=== PATIENT | female | born 1980 | race Caucasian/White ===

== ENCOUNTER → 2016-11-06 | Outpatient (CLI) | payer BC ==
[~2016-11-06] MED LIST: CEPHALEXIN500 M1 PO; DESYREL 50MG50 MG; ENSKYCE 0.15 MG1 TAB PO; FASTIN30 MG PO; GLUCOPHAGE500 MG/TAB PO; HCTZ 25MG TAB25 MG; KLONOPIN 0.5MG0.5 MG PO; LORTAB 5/500 501 TAB PO; NO HOME MEDICATIONS; WELLBUTRIN XL300 M1 PO
== END ==
LOC: COL.RAD 09:45
DX: E04.2 Nontoxic multinodular goiter (principal)

== ENCOUNTER → 2016-11-12 | Outpatient (CLI) | payer BC | LOC: MC.RAD 10:20 | DX: Z12.31 Encounter for screening mammogram for malignant neoplasm of breast (principal); N64.89 Other specified disorders of breast ==

== ENCOUNTER → 2016-11-13 | Outpatient (CLI) | payer BC | LOC: MC.RAD 08:28 | DX: R92.8 Other abnormal and inconclusive findings on diagnostic imaging of breast (principal) ==

== ENCOUNTER → 2016-11-22 | Outpatient (CLI) | payer BC ==
[~2016-11-22] VITALS: Ht 157.5 cm; Wt 102.7 kg
[2016-11-22 09:28] VITALS: BP 142/90; PULSE 85
[2016-11-22 11:00] VITALS: BP 147/92; PULSE 79
== END ==
LOC: COL.RAD 08:52
DX: E04.2 Nontoxic multinodular goiter (principal)

== ENCOUNTER → 2017-03-13 | Outpatient (CLI) | payer BC | LOC: MC.RAD 10:25 | DX: N64.89 Other specified disorders of breast (principal); R92.2 Inconclusive mammogram ==

== ENCOUNTER → 2018-01-01 | Outpatient (CLI) | payer BC | LOC: MC.RAD 09:13 | DX: Z12.31 Encounter for screening mammogram for malignant neoplasm of breast (principal); N63.0 Unspecified lump in unspecified breast; Z80.3 Family history of malignant neoplasm of breast ==

== ENCOUNTER → 2019-01-15 | Outpatient (CLI) | payer BC | LOC: MC.RAD 08:01 | DX: Z12.31 Encounter for screening mammogram for malignant neoplasm of breast (principal); N64.89 Other specified disorders of breast ==

== ENCOUNTER → 2019-01-19 | Outpatient (CLI) | payer BC | LOC: MC.RAD 10:42 | DX: N64.89 Other specified disorders of breast (principal); Z80.3 Family history of malignant neoplasm of breast ==

== ENCOUNTER → 2019-06-11 | Outpatient (CLI) | payer BC | LOC: MC.RAD 08:30 | DX: N63.10 Unspecified lump in the right breast, unspecified quadrant (principal) | CPT/HCPCS: G0279 ==

== ENCOUNTER → 2019-12-31 | Outpatient (CLI) | payer BC | LOC: MC.RAD 13:00 | DX: Z12.31 Encounter for screening mammogram for malignant neoplasm of breast (principal); N64.89 Other specified disorders of breast ==

== ENCOUNTER → 2020-12-18 | Outpatient (CLI) | payer BC | LOC: MC.RAD 08:22 | DX: N64.89 Other specified disorders of breast (principal) ==

== ENCOUNTER 2022-02-01 17:23 | Outpatient (CLI) | payer OTHER ==
[~2022-02-01] VITALS: Ht 154.9 cm; Wt 137.7 kg
--- NOTE | 2022-02-01 17:05 | NUR ---
Pt arrived on unit ambulatory for extended monitoring due to elevated blood pressures in the office. Pt denies any contractions, leaking of fluid or vaginal bleeding and reports normal movement. EFM and toco monitors started. Dr. Donaldson at the bedside. FHR tracing reviewed. Plan of care for serial blood pressure checks and EFM for an hour. Pt verbalized an understanding and agreed with the plan.
[2022-02-01 17:20] VITALS: BP 141/95; PULSE 90; TEMP 97.9
[2022-02-01] MEDS ORDERED: SYNTHROID0.112 MG/T PO (17:30)
[2022-02-01] MEDS ORDERED: EUTHYROX125 MCG PO (17:30)
[2022-02-01] MEDS ORDERED: ASPIRIN 81M81 MG/TA2 PO (17:31)
[2022-02-01] MEDS ORDERED: PRENATAL (17:31)
[2022-02-01] MEDS ORDERED: ZYRTEC5 MG PO (17:32)
[2022-02-01 17:48] VITALS: BP 135/91; PULSE 86
[2022-02-01 18:02] VITALS: BP 133/75; PULSE 75
[2022-02-01 18:17] VITALS: BP 137/77; PULSE 73
--- NOTE | 2022-02-01 19:18 | NUR ---
PT DISCHARGED HOME WITH ROUTINE DISCHARGE INSTRUCTIONS, LABOR PRECAUTIONS, AND INSTRUCTIONS FOR A 24 HOUR URINE COLLECTION. PT PROVIDED WITH 2 URINE COLLECTION JUGS, HAT FOR COLLECTION, AND BASIN TO KEEP JUGS ON ICE. PT INSTRUCTED TO START 24 HOUR URINE COLLECTION IN THE MORNING ON 02/02/22 BETWEEN 7AM-9AM AND THEN INSTRUCTED TO RETURN TO HOSPITAL AFTER COMPLETED FRIDAY MORNING 02/03/22. PT VERBALIZED UNDERSTANDING. ALL QUESTIONS ANSWERED AT THIS TIME. PT LEFT ABULATORY AND IN STABLE CONDITION.
== END 2022-02-01 19:18 | disposition home or self-care (01) ==
LOC: LDRO 17:23 → LDR 17:23 → LDRO 19:18
DX: O09.93 Supervision of high risk pregnancy, unspecified, third trimester (principal); O16.3 Unspecified maternal hypertension, third trimester; Z3A.37 37 weeks gestation of pregnancy
CPT/HCPCS: OP

== ENCOUNTER 2022-02-03 07:45 | Outpatient (CLI) | payer OTHER ==
[~2022-02-03] VITALS: Ht 154.9 cm; Wt 137.0 kg
[~2022-02-03 07:45] MED LIST changes: +ASPIRIN 81M81 MG/TA2 PO; +EUTHYROX125 MCG PO; +PRENATAL; +SYNTHROID0.112 MG/T PO; +ZYRTEC5 MG PO
--- NOTE | 2022-02-03 07:50 | NUR ---
PT AMBULATORY TO UNIT TO DROP OF 24HR URINE TEST. PT DID NOT REALIZE FURTHER MONITORING WAS NEEDED AT THE TIME. NST WAS STARTED AT THIS TIME. EFM TRACING CAT 1. NO CTX NOTED.
--- NOTE | 2022-02-03 08:15 | NUR ---
SHERIE FROM DR. HEWITT TO D/C PT HOME. PT AGREEABLE.
[2022-02-03 09:00] LABS: PROTEIN, TOTAL URINE random <7 mg/dL
[2022-02-03 09:07] LABS: URINE TOTAL VOLUME - 24 HRS 1825 mL/24 hr
== END 2022-02-03 08:15 | disposition home or self-care (01) ==
LOC: LDRO 07:45
PROVIDERS: Student in an Organized Health Care Education/Training Program
DX: Z36.83 Encounter for fetal screening for congenital cardiac abnormalities (principal); Z3A.38 38 weeks gestation of pregnancy